=== PATIENT | male | born 1975 | race Two or more races ===

== ENCOUNTER 2025-03-18 23:59 | Emergency (ER) | payer OTHER ==
[~2025-03-18] VITALS: Ht 182.9 cm; Wt 80.7 kg
[2025-03-19] MEDS ORDERED: KETOROLAC TROMETHAMINE INJ 30 MG/ML VIAL ONE (01:27)
[2025-03-19] MEDS ORDERED: IOHEXOL-350 100 ML VIAL IV ONE (01:38)
[2025-03-19] MEDS ORDERED: CT SWABBABLE VALVE TRANS SET 1 EA INFUS.SET MC ONE (01:38)
[2025-03-19] MEDS: hydrALAZINE HCL IV 20 MG VIAL IV ONE (01:55)
[2025-03-19] MEDS: KETOROLAC TROMETHAMINE INJ 30 MG/ML VIAL IV ONE (01:55)
[2025-03-19 02:13] VITALS: BP 171/112; TEMP 98.8; O2SAT 98
== END 2025-03-19 02:13 | disposition left against medical advice (07) ==
LOC: ER 23:59
DX: R07.89 Other chest pain (principal); R10.84 Generalized abdominal pain; I10 Essential (primary) hypertension; E11.9 Type 2 diabetes mellitus without complications
CPT/HCPCS: 99283; 93005; Q9967; J1885